=== PATIENT | female | born 1955 | race Caucasian/White ===

== ENCOUNTER 2021-10-09 12:54 | Outpatient (CLI) | payer OTHER, SELFPAY ==
--- NOTE | 2021-10-09 13:14 | MM_ITS ---
WS: [id number] RIGHT 3D TOMOSYNTHESIS DIGITAL MAMMOGRAPHY WITH CAD CLINICAL INFORMATION: HX OF BREAST CA;LT MAST COMPARISON: 2018 TECHNIQUE: 3 views of the right breast were obtained. FINDINGS: The right breast is composed of heterogeneous fibroglandular density tissue, which can limit the dete ction of small underlying mass lesions. A few incidental punctate calcifications. No suspicious focal mass, asymmetry, calcifications, or architectural distortion. Ultrasound LEFT axilla is pending and reported separately. History of LEFT mastectomy. MM/[place] [id number] IMPRESSION: BI-RADS: 2-Benign FOLLOW UP: 1 Year Follow-up Recommend return to annual diagnostic mammography.
--- NOTE | 2021-10-09 13:20 | US_ITS ---
WS: [id number] INDICATION: LEFT axillary mass TECHNIQUE: Ultrasound LEFT axilla. FINDINGS: Patient reports LEFT axillary mass has been present for several years Complex mixed echogenicity lesion LEFT axilla in the area of patient concern. This is subcutaneous in location just below the skin with a small suspected tract connecting to the dermis. No internal vasc ularity. Additional normal-appearing lymph nodes in the LEFT axilla. Differential considerations include sebaceous cyst or possibly a lymph node. Patient with history of prior axillary lymph node dissection in this area 5-6 years prior. This would be difficult to biopsy due to axillary cavitation in this area and shallow location. Recommend 6 month follow-up to assess f or change. US/US soft tissue/extremity [id number] IMPRESSION: Recommend 6 month follow-up LEFT axillary lesion with ultrasound.
== END 2021-10-09 12:55 | disposition home or self-care (01) ==
LOC: RAD 12:56
PROVIDERS: Family Provider Family Medicine; Visit Provider Family Medicine
DX: Z85.3 Personal history of malignant neoplasm of breast (principal); Z90.12 Acquired absence of left breast and nipple
CPT/HCPCS: 76882; 77061